=== PATIENT | female | born 1955 | race Two or more races ===

== ENCOUNTER 2019-12-24 16:07 | Emergency (ER) | payer MEDICAID ==
[~2019-12-24] VITALS: Ht 154.9 cm; Wt 86.4 kg
[2019-12-24] MEDS ORDERED: ASCO500 PO (16:17)
[2019-12-24] MEDS ORDERED: ACETAMINOPHEN 500 MG TABLET PO ONE (17:00)
[2019-12-24 17:46] VITALS: BP 141/91
== END 2019-12-24 18:07 | disposition home or self-care (01) ==
LOC: EMS 16:07
DX: J20.9 Acute bronchitis, unspecified (principal); Z20.828 Contact with and (suspected) exposure to other viral communicable diseases
CPT/HCPCS: 99283; U0003